=== PATIENT | male | born 1940 | race Caucasian/White ===

== ENCOUNTER → 2019-01-12 | Outpatient (CLI) | payer MEDICARE, BC ==
--- NOTE | 2019-01-12 18:37 | FL ---
MODIFIED SWALLOW / DEGLUTITION STUDY DATE OF EXAM: 01/12/2019 CLINICAL HISTORY: 78-year-old male with myasthenia gravis. TECHNIQUE: Deglutition study is performed utilizing thin liquid barium, honey and nectar thick liqui d barium, barium thick applesauce, and barium coated cracker. Total fluoroscopy time: 1 minute 44 seconds. Total images: None. Real-time fluoroscopy support was provided to speech pathology. COMPARISON: None. FINDINGS: The oral and pharyngeal phases show satisfactory initiation and propagation with all modalities teste d. Transient penetration is demonstrated with thin liquid consistency. There is no improvement with chin tuck maneuver. The other consistencies show no penetration or aspiration. No significant pharyng eal residue was appreciated. IMPRESSION: Transient penetration with thin liquid consistency. No aspiration seen. No improvement with chin tuck maneuver. Please refer to speech therapist notes for further details if necessary.
== END | disposition home or self-care (01) ==
LOC: RADFLMAIN 11:05
PROVIDERS: ATTEND Psychiatry & Neurology Neurology
DX: G70.00 Myasthenia gravis without (acute) exacerbation (principal)
CPT/HCPCS: 74230

== ENCOUNTER → 2019-08-24 | Outpatient (CLI) | payer MEDICARE, BC ==
--- NOTE | 2019-08-24 12:02 | FL ---
EXAMINATION TYPE: FL barium swallow w video DATE OF EXAM: 08/24/2019 MODIFIED SWALLOW / DEGLUTITION STUDY CLINICAL HISTORY: Dysphagia. Hoarseness. History of myasthenia gravis. Recent hospitalization with tr acheostomy and PEG tube. TECHNIQUE: Deglutition study is performed utilizing thin liquid barium, honey and nectar thick liqui d barium, barium thick applesauce, and barium coated cracker. A total of 54 seconds of fluoroscopic t kieran utilized. 0 spot images saved to PACS. COMPARISON: None. FINDINGS: The oral and pharyngeal phases show satisfactory initiation and propagation with all modali ties tested. Satisfactory mastication is seen with solid modalities tested. There is no evidence of penetration or aspiration with any modality tested. No significant pharyngeal residue was appreciate d. IMPRESSION: No penetration or aspiration observed. Please refer to speech therapist notes for furthe r details if necessary.
== END | disposition home or self-care (01) ==
LOC: RADFLMAIN 11:12
PROVIDERS: ATTEND Nurse Practitioner Family
DX: R13.10 Dysphagia, unspecified (principal)
CPT/HCPCS: 74230

== ENCOUNTER 2020-12-28 08:33 | Day surgery (SDC) | payer MEDICARE, BC ==
[2020-12-28 09:13] VITALS: TEMP 98.2
--- NOTE | 2020-12-28 11:02 | US ---
EXAMINATION TYPE: US FNA first lesion, US biopsy lymph node DATE OF EXAM: 12/28/2020 HISTORY: Right submandibular adenopathy and lip cancer. FINDINGS: Maximal barrier technique was utilized. Hand hygiene achieved with soap and water and alco hol-based hand rub. The skin overlying a suitable path to the patient's right submandibular enlarged lymph node] was localized with ultrasound and the overlying skin prepped and draped. Ultrasound was utilized with sterile technique. Lidocaine was used for local anesthesia. Single pass with a 25-gaug e needle was made under ultrasound guidance and aspirated specimen submitted to cytology. A skin belle was made with a scalpel. A 20 gauge needle was advanced under direct ultrasound guidance and core s pecimen obtained of the mass. 2 additional passes were made and core specimen submitted in formalin. Following the procedure, hemostasis achieved and the patient is discharged in stable condition witho ut complication. IMPRESSION:STATUS POST ULTRASOUND GUIDED CORE BIOPSY AND FINE-NEEDLE ASPIRATION RIGHT SUBMANDIBULAR A DENOPATHY, PATHOLOGY IS PENDING. THIS PROCEDURE IS PERFORMED BY THE UNDERSIGNED.
[2020-12-28 11:03] VITALS: BP 133/69; PULSE 65; RESP 16
== END 2020-12-28 11:04 | disposition home or self-care (01) ==
LOC: RADPROMAIN 08:33
PROVIDERS: ATTEND Surgery
DX: C00.0 Malignant neoplasm of external upper lip (principal); Z87.891 Personal history of nicotine dependence
CPT/HCPCS: 10005; 38505; 76942; 88173; 88305

== ENCOUNTER → 2021-04-24 | Outpatient (CLI) | payer MEDICARE, BC ==
--- NOTE | 2021-04-25 00:29 | CT ---
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 CT DLP: 1533.2 mGycm Automated exposure control for dose reduction was used. TECHNIQUE AND CONTRAST: Multiplanar CT scan of the chest, abdomen and pelvis is performed with Oral Contrast and without and with IV Contrast, patient injected with 100 mL of Isovue 300. FINDINGS: Chest: Unremarkable lungs and no definite lung nodule or suspicious lesion identified. Patent central airway s. No pleural or pericardial effusion. Tiny left thyroid lobe hypodensity measuring 3 mm. Increased c ardiac size, for correlation with echocardiographic results. Scattered arterial atherosclerotic calci fications and atheromatous plaques, most evident seen in the descending thoracic aorta. Coronary juancarlos rial atherosclerotic calcifications. No pathologically enlarged lymph nodes seen in the chest. No agg ressive bone lesion. Abdomen and pelvis: No definite focal lesion identified. Unremarkable gallbladder, spleen, pancreas and adrenals. 5 mm le ft renal cortical hypodensity, suboptimally assessed by the CT scan and could represent a renal cyst, for correlation with ultrasound results. Cortical hypodensity with focal bulge is seen in the left u pper renal pole measuring 10 mm, incompletely characterized. Underlying lesion cannot be excluded. Scattered arterial atherosclerotic calcifications. Infrarenal abdominal aortic ectasia measuring up t o 2.5 cm. Grossly unremarkable urinary bladder. Enlarged prostate, please correlated with PSA level. Unremarkable seminal vesicles. Unremarkable nondistended stomach and duodenum and small bowel. Scattered uncomplicated colonic diverticulosis, most evident involving the sigmoid colon. The colon is seen insinuated between the liver and the diaphragm. Normal appendix. Bilateral fat-cont aining inguinal hernias. No suspicious lymphadenopathy or sizable ascites. 8 mm sclerotic focus is se en in the left pubic bone, possibly representing a bone island, nonspecific. No aggressive bone lesio n. IMPRESSION: Questionable subtle small lesion at the upper pole of the left kidney with suspected tiny cyst at the midportion of the left kidney, for correlation with ultrasound results. Otherwise no evidence of metastatic disease seen in the chest, abdomen or the pelvis. Incidental find ings as described above.
== END | disposition home or self-care (01) ==
LOC: RADCTMAIN 12:14
PROVIDERS: ATTEND Radiology Radiation Oncology
DX: C00.0 Malignant neoplasm of external upper lip (principal); G70.00 Myasthenia gravis without (acute) exacerbation
CPT/HCPCS: 82565; 84520; 71270; 74178; 36415; Q9967

== ENCOUNTER → 2021-06-20 | Outpatient (CLI) | payer MEDICARE, BC ==
--- NOTE | 2021-06-20 14:38 | CT ---
EXAMINATION TYPE: CT soft tissue neck w con DATE OF EXAM: 06/20/2021 12:13 PM COMPARISON: PET scan dated 01/24/2021 HISTORY: [place] cell carcinoma CT DLP: 433.20 mGycm Automated exposure control for dose reduction was used. CONTRAST: CT scan of the neck is performed following with IV Contrast, patient injected with 100 mL of Isovue 3 00. Axial images are obtained, coronal and sagittal reformatted images are reviewed. FINDINGS: Surgical clips are seen along the upper lip. Bilateral submandibular necrotic lymph nodes measuring u p to 13 mm on the right side and 12 mm on the left side, appreciated previously. Newly seen soft tiss ue nodules along the lateral aspect of the mandibular body bilaterally measuring 17 mm on the right s edith and 10 mm on the left side, possibly metastatic. Intact underlying bones. No other pathologically enlarged lymph nodes in the neck. Unremarkable nasopharynx, oropharynx, hypopharynx, larynx and visualized portion of the esophagus. Ti ny hypodensity in the left thyroid lobe possibly representing a tiny colloid cyst. Symmetrical unrema rkable parotid and submandibular salivary glands. Atherosclerotic calcifications with mild stenosis of the bifurcation of the right common carotid juancarlos ry yet patent arteries distally. Patent major neck vessels. Degenerative changes of the cervical spin e. No gross aggressive bone lesion. CT scan of the chest is dictated separately. IMPRESSION: Persistent bilateral submandibular lymph nodes, likely metastatic with newly seen soft tissue nodules along the lateral aspect of the mandibular body bilaterally, likely metastatic. Recommend further PE T/CT scan assessment. Other incidental findings as described above.
--- NOTE | 2021-06-20 19:02 | CT ---
EXAMINATION TYPE: CT ChestAbdPelvis w con DATE OF EXAM: 06/20/2021 COMPARISON: CT dated 04/24/2021 HISTORY: [place] Cell Carcinoma CT DLP: 1258.40 mGycm Automated exposure control for dose reduction was used. CONTRAST: CT scan of the chest, abdomen and pelvis is performed with Oral Contrast and with IV Contrast, patien t injected with 100ml mL of Isovue 300. FINDINGS: LUNGS: The lungs are grossly clear, there is no concerning parenchymal mass or nodule identified. T here is no pleural effusion or pneumothorax seen. The tracheobronchial tree is patent. MEDIASTINUM: There are no greater than 1 cm hilar or mediastinal lymph nodes. Mild cardiomegaly. Cor onary and arterial atherosclerotic calcifications. No pericardial effusion is seen. OTHER: No aggressive bone lesion. LIVER/GB: No significant abnormality is appreciated. PANCREAS: No significant abnormality is seen. SPLEEN: No significant abnormality is seen. ADRENALS: No significant abnormality is seen. KIDNEYS: Persistent left upper renal pole exophytic slightly hypodense lesion, possibly representing a small renal cell carcinoma measuring up to 12 mm. Tiny left mid pole renal cyst without suspicious feature. Unremarkable kidneys otherwise. No hydroureter or hydronephrosis. BOWEL: Unremarkable stomach, duodenum and small bowel. Fecal loading of the rectum and segments of t he colon. Uncomplicated colonic diverticulosis. Focal circumferential wall thickening of the superior aspect of the ascending colon, underlying lesion cannot be excluded, please correlate with colonosco py results. Normal appendix. REPRODUCTIVE ORGANS: Slightly enlarged prostate. Unremarkable seminal vesicles. Unremarkable urinary bladder. LYMPH NODES: No greater than 1 cm abdominal or pelvic lymph nodes are appreciated. OSSEOUS STRUCTURES: Interval subtle fracture of the lower endplate of L1 vertebral body with mild maria alejandra tral height reduction without significant bony spinal canal stenosis, not appreciated previously. Ple ase correlate with history of interval trauma. Further bone scan assessment can be considered. No coleman ss aggressive bone lesion. OTHER: Infrarenal abdominal aortic ectasia measuring up to 2.5 cm. Scattered arterial atherosclerotic calcifications. Ectatic left common iliac artery. Bilateral fat-containing inguinal hernias. No siza ble ascites. Marked fatty infiltration of the lower back muscles. IMPRESSION: 1. No evidence of metastatic disease seen in the chest. 2. Persistent exophytic left upper renal pole lesion which could represent a small renal cell carcino ma, for further dedicated MRI assessment. 3. Focal circumferential wall thickening of the superior aspect of the ascending colon, underlying le mariah cannot be excluded, please correlate with colonoscopy results. 4. Interval L1 vertebral body fracture as described above which could be related to interval trauma o r osteopenia, please correlate clinically. Further bone scan assessment can be considered. 5. Otherwise no evidence of metastatic disease seen in the chest, abdomen or the pelvis. Incidental f indings as described above.
== END | disposition home or self-care (01) ==
LOC: RADCTMAIN 09:39
PROVIDERS: ATTEND Dermatology
DX: C4A.9 Merkel cell carcinoma, unspecified (principal); N28.89 Other specified disorders of kidney and ureter; K63.89 Other specified diseases of intestine; S32.019A Unspecified fracture of first lumbar vertebra, initial encounter for closed fracture; X58.XXXA Exposure to other specified factors, initial encounter
CPT/HCPCS: 82565; 84520; 70491; 71260; 74177; 36415; Q9967

== ENCOUNTER → 2021-07-22 | Outpatient (CLI) | payer MEDICARE, BC ==
--- NOTE | 2021-07-22 15:08 | MR ---
EXAMINATION TYPE: MR lumbar spine wo/w con DATE OF EXAM: 07/22/2021 COMPARISON: None HISTORY: [place] cell ca, hx of irradiation, low back pain CONTRAST: Standard multiplanar, multisequence MRI departmental protocol images were obtained without contrast a nd with 7 mL intravenous Gadavist gadolinium contrast. The lumbar vertebrae have normal alignment. There are multiple patchy areas of decreased signal on th e T1 images in the lumbar vertebral bodies. There is L1 compression fracture with 40% loss of height and anterior wedging. No spinal stenosis. Neural foramina are fairly well maintained. There is no lum bar paraspinal mass. Precontrast images show multiple areas of enhancement in the vertebral bodies. IMPRESSION: Multiple low signal T1 lesions with enhancement throughout the lumbar vertebral bodies and also invol ving the sacrum. This could be multiple myeloma. There is a mild compression fracture of L1 vertebra. No spinal stenosis.
== END | disposition home or self-care (01) ==
LOC: RADMRIMAIN 08:51
PROVIDERS: ATTEND Radiology Radiation Oncology
DX: C4A.9 Merkel cell carcinoma, unspecified (principal); M48.56XA Collapsed vertebra, not elsewhere classified, lumbar region, initial encounter for fracture; Z92.3 Personal history of irradiation
CPT/HCPCS: 72158; A9585

== ENCOUNTER → 2021-07-28 | Outpatient (CLI) | payer MEDICARE, BC ==
--- NOTE | 2021-07-31 06:45 | PE ---
EXAMINATION TYPE: PET CT fusion skull to thigh DATE OF EXAM: 07/28/2021 COMPARISON: Prior whole-body CT June 20, 2021 and older studies including outside PET/CT January HISTORY: [place] cell cancer. History of biopsy and excision in March completed radiation treatment in May. TECHNIQUE: Following the intravenous administration of 11.4 mCi of F-18 FDG, whole body images are p erformed from the skull base to the midthigh. Images are reviewed on the computer in the coronal, ax ial, and sagittal planes. Reconstructed rotating images are created on independent workstation and r eviewed on the computer. A localization and attenuation correction CT is performed in conjunction w ith the PET scan. Blood glucose level equals 116. Dedicated PET CT imaging of the head and neck. SCAN: Subsequent Scan FINDINGS: HEAD AND NECK: Mild hypermetabolic asymmetric uptake over the right mandible axial image [address] correlate, max SUV is 4.71. Just posterior to the right mandible along superior lateral right submitted gland there is mildly hypermetabolic uptake in 1.7 x 1.5 cm mass or lymph node axial image 60 ,Max SUV is 5.16. Lesion is suspicious. Just posterior to this there is subcentimeter hyper metabolic lesion with Max SUV 3.9 on axial image 61. No additional areas of abnormal hypermetabolic uptake particularly right level 1B lymph node near hyo id bone now not clearly seen. CHEST, MEDIASTINUM, AND HILAR REGION: No new areas of abnormal metabolic uptake. ABDOMEN AND PELVIS: Nonspecific bowel uptake redemonstrated. Normal excretion seen. No areas of abnor mal hypermetabolic uptake. No abnormal hypermetabolic uptake in the peripheral left upper kidney at a jessenia of concern on most recent CT OSSEOUS STRUCTURES: Mild fairly diffuse osseous uptake presumed related to treatment change. No defin itive suspicious focal hypermetabolic uptake OTHER CT: Mild calcified plaque left carotid bulb level. More moderate calcified plaque right carotid bulb level. Severe coronary artery calcification and/or stents are redemonstrated. Prominent sigmoid colonic diverticulosis again seen. Moderate compression type fracture at L1 level i s redemonstrated. IMPRESSION: Persistent suspicious areas in the right face and upper neck. No new metastatic disease s een.
== END | disposition home or self-care (01) ==
LOC: RADPETMAIN 10:29
PROVIDERS: ATTEND Internal Medicine Hematology & Oncology
DX: C4A.30 Merkel cell carcinoma of unspecified part of face (principal); Z92.3 Personal history of irradiation
CPT/HCPCS: 78815; A9552